=== PATIENT | female | born 1980 | race Caucasian/White ===

== ENCOUNTER → 2019-04-27 14:05 | Outpatient (BNVA) | payer OTHER, SELFPAY | PROVIDERS: PCP Nurse Practitioner; Visit Provider Nurse Practitioner | DX: J02.9 Acute pharyngitis, unspecified (principal); J06.9 Acute upper respiratory infection, unspecified; F41.9 Anxiety disorder, unspecified | CPT/HCPCS: 36415; 80053; 85025; 86308 ==

== ENCOUNTER → 2020-05-25 11:44 | Outpatient (BNVA) | payer OTHER, SELFPAY | PROVIDERS: PCP Nurse Practitioner; Visit Provider Nurse Practitioner Family | DX: Z20.828 Contact with and (suspected) exposure to other viral communicable diseases (principal) | CPT/HCPCS: 87400; 87635 ==

== ENCOUNTER → 2020-06-07 11:54 | Outpatient (BNVA) | payer OTHER, SELFPAY | PROVIDERS: PCP Nurse Practitioner Family; Visit Provider Nurse Practitioner Family | DX: R06.02 Shortness of breath (principal); Z86.19 Personal history of other infectious and parasitic diseases | CPT/HCPCS: 71046 ==

== ENCOUNTER → 2021-04-11 15:55 | Outpatient (BNVA) | payer OTHER, SELFPAY | PROVIDERS: PCP Nurse Practitioner Family; Visit Provider Nurse Practitioner Family | DX: Z20.822 Contact with and (suspected) exposure to COVID-19 (principal); R51.9 Headache, unspecified | CPT/HCPCS: 87486; 87581; 87633; 87635 ==

== ENCOUNTER 2023-10-22 10:00 | Outpatient (CLI) | payer OTHER, SELFPAY | END 2023-10-22 10:01 | disposition home or self-care (01) | PROVIDERS: PCP Nurse Practitioner Family; Visit Provider Nurse Practitioner Family | DX: Z12.31 Encounter for screening mammogram for malignant neoplasm of breast (principal) | CPT/HCPCS: 77063; 77067 ==

== ENCOUNTER 2023-11-12 12:18 | Outpatient (CLI) | payer OTHER, SELFPAY ==
--- NOTE | 2023-11-12 12:22 | XR_ITS ---
WS: [id number] Examination: XR hand RT min 3V* [id number] Reason for Exam: right hand injury Date: November 12, 2023 Comparison: None. Findings: The bone density is maintained. Limited dorsal soft tissue swelling is suspected. There is no displaced fracture. There is no dislocation. XR/XR hand RT min 3V* [id number] Impression: No acute bony abnormality is appreciated.
== END 2023-11-12 12:19 | disposition home or self-care (01) ==
LOC: RAD 12:19
PROVIDERS: PCP Nurse Practitioner Family; Visit Provider Nurse Practitioner Family
DX: S69.91XA Unspecified injury of right wrist, hand and finger(s), initial encounter (principal); X58.XXXA Exposure to other specified factors, initial encounter
CPT/HCPCS: 73130

== ENCOUNTER 2023-12-29 10:25 | Outpatient (CLI) | payer OTHER, SELFPAY ==
--- NOTE | 2023-12-29 10:56 | MM_ITS ---
WS: [id number] ADDITIONAL VIEWS LEFT MAMMOGRAM WITH DIGITAL BREAST TOMOSYNTHESIS. HISTORY: ABNORMAL MAMMOGRAM COMPARISON: 10/22/2023, 01/21/2019 Spot compression views LEFT breast in CC, MLO projections and true ML submitted with digital breast t omosynthesis and SM. Breast composition: The breasts are heterogeneously dense, which may obscure small masses. The ovoid mass described on the prior mammogram from 10/22/2023 is not identified on the additional vi ews. This may have been a cyst that has resolved in the interval. There is no mass or distortion in t he area of concern as noted on the prior study. Ultrasound not necessary. MM/MM diag LT tomosynthesis [id number] IMPRESSION: BI-RADS: 2 - Benign FOLLOW UP: 1 Year Follow-up
== END 2023-12-29 10:26 | disposition home or self-care (01) ==
LOC: RAD 10:26
PROVIDERS: PCP Nurse Practitioner Family; Visit Provider Nurse Practitioner Family
DX: R92.8 Other abnormal and inconclusive findings on diagnostic imaging of breast (principal); R92.333 Mammographic heterogeneous density, bilateral breasts
CPT/HCPCS: 77061; G0279

== ENCOUNTER → 2024-05-09 13:32 | Outpatient (BNVA) | payer OTHER, SELFPAY | PROVIDERS: PCP Nurse Practitioner Family; Visit Provider Nurse Practitioner Family | DX: R30.0 Dysuria (principal) | CPT/HCPCS: 81003 ==

== ENCOUNTER → 2024-05-25 14:04 | Outpatient (BNVA) | payer OTHER, SELFPAY | PROVIDERS: PCP Nurse Practitioner Family; Visit Provider Nurse Practitioner Family | DX: R05.9 Cough, unspecified (principal) | CPT/HCPCS: 87426 ==